=== PATIENT | female | born 1945 | race Caucasian/White ===

== ENCOUNTER 2022-01-20 21:55 | Emergency (ER) | payer MEDICARE, SELFPAY ==
--- NOTE | 2022-01-20 21:57 | ECG_ITS ---
[facility] Test Date: 2022-01-20 Pat Name: Ca Awad Department: Room: Gender: Female Mds Rn: : 1945 Requested By: Ana Shepard Order Number: [id number] Melissa MD: Jose Carroll M.D. Measurements Intervals [place] Rate: 66 P: 57 SC: 156 QRS: 35 QRSD: 87 T: 66 QT: 448 QTc: 470 Interpretive Statements SINUS RHYTHM No previous ECG available for comparison Electronically Signed On 01-21-2022 20:49:35 CDT by Jose Carroll M.D. [id number]
[2022-01-20 22:03] VITALS: BMI 31.5
[2022-01-20 22:09] VITALS: BP 176/97; PULSE 70; RESP 16; TEMP 36.6; O2SAT 98
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
[2022-01-20 22:38] LABS: Basophils # 0.1 10^3/uL (0.0-0.1); Eosinophils # 0.3 10^3/uL (0.0-0.8); Eosinophils % 4.7 %; Hematocrit 36.3 % (37.0-47.0); Hemoglobin 11.6 g/dL (11.5-15.3); Lymphocytes # 2.3 10^3/uL (0.8-4.8); Lymphocytes % 32.5 %; Mean Corpuscular Hemoglobin 34.2 pg (28.0-34.0); Mean Corpuscular Volume 107.1 fl (81-99); Mean Platelet Volume 8.9 fL (7.4-10.4); Monocytes # 0.4 10^3/uL (0.2-0.9); Monocytes % 6.1 %; Neutrophils # 3.86 10^3/uL (1.8-7.7); Neutrophils % 55.1 %; Nucleated Red Blood Cells % 0 %; Platelet Count 172 10^3/cmm (130-400); Red Blood Count 3.39 10^6/uL (4.1-5.3); Red Cell Distribution Width 14.7 % (12.1-15.1)
[2022-01-20 22:47] LABS: Amphetamines Screen Urine Negative (Negative); Barbiturates Screen Urine Negative (Negative); Benzodiazepines Screen Urine Negative (Negative); Cocaine Screen Urine Negative (Negative); Opiate Screen Urine Negative (Negative); PCP Screen Urine Negative (Negative); THC Screen Urine Negative (Negative)
[2022-01-20 22:54] LABS: SARS Covid-2 Antigen Negative (Negative)
[2022-01-20 23:01] LABS: Alanine Aminotransferase 16 U/L (0-33); Albumin Level 4.7 g/dL (3.5-5.2); Alkaline Phosphatase 94 IU/L (35-105); Anion Gap 20.3 (5-19); Aspartate Amino Transferase 27 U/L (0-32); Blood Urea Nitrogen 23 mg/dL (8-23); Calcium 9.6 mg/dL (8.5-10.5); Carbon Dioxide 22 mmol/L (22-29); Chloride 99 mmol/L (98-107); Globulin 2.6 g/dL (1.3-4.6); Glucose 89 mg/dL (65-115); Osmolality Calculated 285 mOsm/kg (285-295); Potassium 5.3 mmol/L (3.5-5.1); Sodium 136 mmol/L (136-145); Total Bilirubin 0.2 mg/dL (0.15-1.2); Total Protein 7.3 g/dL (6.6-8.7)
[2022-01-20 23:13] LABS: Acetaminophen < 5.0 ug/mL (10-30); Salicylate < 0.3 mg/dL (3-10)
[2022-01-20 23:14] LABS: Alcohol Level 317 mg/dL (0-10)
[2022-01-21] MEDS: folic acid 1 MG, multivitamin inj 10 ML, thiamine 100 MG in sodium chloride 0.9% 1,000 ML 252.8 MG IV (00:30)
--- NOTE | 2022-01-21 00:54 | PC.NURSE ---
pt informed her daughter here at this time and requests a house calderón to stay the night. Pt took a house calderón on a [employer] chain out of purse to give to her daughter.
[2022-01-21 01:54] VITALS: BP 156/88; PULSE 81; RESP 18; O2SAT 91
[2022-01-21 02:37] LABS: Alcohol Level 238 mg/dL (0-10)
[2022-01-21 06:00] VITALS: BP 127/64; PULSE 82; RESP 17; TEMP 36.5; O2SAT 92
[2022-01-21 07:33] LABS: Alcohol Level 105 mg/dL (0-10)
--- NOTE | 2022-01-21 08:56 | PC.PHAR ---
pt states she takes care of her own medications-ext med history shows levothyroxine last filled 10/29/21 90d/s for 75mcg ext also shows 50mcg daily filled 11/10/21 90d/s pt states taking the 75mcg-pt states she just ran out of her hydralazine 10mg tid 2 weeks ago ext med history shows last filled 10/31/21 30d/s-pt states she is still taking gabapentin 100mg bid pt states she had a build up ext shows last filled 10/31/21 30d/s-pt states she has been out of her zetia 10mg daily for months ext med shows last filled 08/16/21 90d/s and tizanidine 2mg bid last filled 09/23/21 30d/s-notes are made in the pharmacy comments
[2022-01-21 10:00] VITALS: BP 211/95; PULSE 70; RESP 18; O2SAT 95
--- NOTE | 2022-01-21 12:25 | PC.NURSE ---
notified dietary of need for tray for pt.
[2022-01-21 14:08] VITALS: BP 202/98; PULSE 71; RESP 18; O2SAT 92
[2022-01-21] MEDS: amlodipine 10 mg Tablet PO (14:54)
[2022-01-21] MEDS: carvedilol 6.25 mg Tablet PO (14:55)
[2022-01-21] MEDS: metoprolol tartrate 1 mg/1 mL SDV 5 mL 5 MG IVP (14:55)
[2022-01-21 16:00] LABS: Anion Gap 17.4 (5-19); Blood Urea Nitrogen 20 mg/dL (8-23); Calcium 9.6 mg/dL (8.5-10.5); Carbon Dioxide 22 mmol/L (22-29); Chloride 104 mmol/L (98-107); Glucose 99 mg/dL (65-115); Osmolality Calculated 289 mOsm/kg (285-295); Potassium 5.4 mmol/L (3.5-5.1); Sodium 138 mmol/L (136-145)
[2022-01-21] MEDS: sodium polystyrene sulfonate 15 gm/60 mL Btl 30 GM PO (17:58)
[2022-01-21 18:59] VITALS: BP 196/97; PULSE 71; RESP 16; O2SAT 93
[2022-01-21 22:04] VITALS: BP 178/99; PULSE 76; RESP 16; TEMP 36.4; O2SAT 95
[2022-01-22] MEDS: hyDRALAzine 10 mg Tablet PO ×2 (00:01→09:16)
[2022-01-22] MEDS: gabapentin 100 mg Capsule PO ×2 (00:02→08:10)
[2022-01-22] MEDS: PARoxetine 20 mg Tablet 40 MG PO (00:02)
[2022-01-22] MEDS: meloxicam 7.5 mg tablet 15 MG PO (00:02)
[2022-01-22 01:29] LABS: Alcohol Level < 10 mg/dL (0-10)
--- NOTE | 2022-01-22 03:44 | XRR_ITS ---
PROCEDURE INFORMATION: Exam: XR Chest Exam date and time: 01/22/2022 3:51 AM Age: 76 years old Clinical indication: Other: Medical clearance; Patient HX: Screening exam for psych placement. Denies any current resp complaints. TECHNIQUE: Imaging protocol: Radiologic exam of the chest. Views: 1 view. COMPARISON: No relevant prior studies available. FINDINGS: Lungs: Unremarkable. No consolidation. Pleural spaces: Unremarkable. No pleural effusion. No pneumothorax. Heart/Mediastinum: Unremarkable. No cardiomegaly. Bones/joints: Unremarkable. XR/XR chest 1V portable [id number] IMPRESSION: No acute findings.
[2022-01-22 04:50] VITALS: BP 190/102; PULSE 63; RESP 18; O2SAT 95
[2022-01-22 06:10] LABS: Hematocrit 33.8 % (37.0-47.0); Hemoglobin 11.3 g/dL (11.5-15.3)
[2022-01-22] MEDS: levothyroxine 75 mcg Tablet PO (06:17)
[2022-01-22 06:27] LABS: Estmated Average Glucose 91; Hemoglobin A1C 4.8 % (4.0-6.0)
[2022-01-22 06:44] LABS: Cholesterol 266 mg/dL (0-200); Triglycerides 51 mg/dL (0-150)
[2022-01-22 07:23] LABS: Chol HDL Ratio 1.67 mg/dL (0.0-4.40); HDL Cholesterol 159 mg/dL (60-100); LDL Cholesterol Calculated 97 mg/dL (50-129); LDL HDL Ratio 0.61 RATIO (0.00-3.22)
[2022-01-22] MEDS: amlodipine 5 mg Tablet PO (08:09)
[2022-01-22] MEDS: pantoprazole DR 40 mg Tablet PO (08:10)
[2022-01-22] MEDS: carvedilol 6.25 mg Tablet PO ×2 (08:15)
[2022-01-22 08:19] VITALS: BP 202/102; PULSE 64; RESP 17; O2SAT 95
--- NOTE | 2022-01-22 12:40 | DCPLANNER ---
Addendum entered by Melissa Mariee 01/22/22 13:28: utilization management manager was told that patient will be discharged home, that pillowcase maker would need to call patients son to come and get her. utilization management manager called patient and explained to the son that patient was discharged and that he would need to come and get her. utilization management manager also called patients daughter and explained to her that patient was being discharged. Family stated that someone would be here by 5:00 to get patient. Original Note: utilization management manager was asked to help with goran psych placement. utilization management manager called the following facilities: [place] - closed due to [facility] - no beds [facility] - to [facility] - left voicemail at 9:00 [place] - no beds [facility] - no beds [facility] - no beds [facility], [place] - left VM at 10:42 [facility] - no beds [facility] - no beds [facility] - patient is wait listed at this time.
[2022-01-22 13:25] LABS: Add Urine Microscopic? NO; Charge for UA Resulting for Rev
[2022-01-22 13:35] LABS: Bilirubin Urine Neg (Negative); Blood Urine Neg (Negative); Glucose Urine UA Norm (Normal); Ketones Urine Negative (Negative); Leukocyte Esterase Urine Negative (Negative); Nitrate Urine Negative (Negative); Protein Urine Neg (Negative); Specific Gravity, Urine 1.005 (1.005-1.030); Urine Appearance Clear (CLEAR); Urine Color Yellow (Yellow); Urobilinogen Urine Norm (Negative); pH Urine 7 (5-7)
== END 2022-01-22 17:57 | disposition home or self-care (01) ==
PROVIDERS: Emergency Medicine; Emergency Provider Family Medicine
DX: R45.851 Suicidal ideations (principal); F10.129 Alcohol abuse with intoxication, unspecified; Y90.0 Blood alcohol level of less than 20 mg/100 ml; Z20.822 Contact with and (suspected) exposure to COVID-19
CPT/HCPCS: 36415; 71045; 80048; 80053; 80061; 80306; 80307; 81003; 83036; 85014; 85018; 85025; 87426; 93005; 96361; 96374; 99285; J3411; J3490; J7030